=== PATIENT | female | born 1965 | race Caucasian/White ===

== ENCOUNTER 2016-04-12 09:51 | Emergency (ER) | payer OTHER ==
[2016-04-12 09:56] VITALS: BP 146/86; PULSE 74; TEMP 98.1; BMI 24.9
--- NOTE | 2016-04-12 11:45 | PDOC ---
History of Present Illness - General Chief Complaint: Pain Stated Complaint: EMPLOYEE, RT HAND INJURY Time Seen by Provider: 04/12/16 10:20 History Source: Patient Exam Limitations: No Limitations - History of Present Illness Initial Comments: 04/12/16 11:39 PAIN RIGHT RING FINGER X THIS AM; ? TRAUMA Occurred: denies: just prior to arrival Severity: denies: mild Pain Location: denies: none Method of Injury: No: unknown Modifying Factors: worse with: None Past History - Past Medical History Allergies/Adverse Reactions: Allergies Allergy/AdvReac Type Severity Reaction Status Date / Time No Known Allergies Allergy Verified 04/12/16 09:53 Home Medications: Ambulatory Orders NK [No Known Home Medication] 04/12/16 HTN: Yes - Immunization History Immunization Up to Date: Yes - Psycho/Social/Smoking Cessation Hx Anxiety: No Suicidal Ideation: No Smoking History: Former smoker Have you smoked in the past 12 months: No Number of Cigarettes Smoked Daily: 26 Information on smoking cessation initiated: No Hx Alcohol Use: No Drug/Substance Use Hx: No Substance Use Type: None Trauma Specific PMHX - Complaint Specific PMHX Arthritis: No Back Injury: Yes Neck Injury: No Hx Sacro Iliac Joint Dysfunction: No Review of Systems - Review of Systems Constitutional: No: Chills, Fever, Malaise HEENTM: No: Symptoms Reported Respiratory: No: Symptoms reported Cardiac (ROS): No: Symptoms Reported ABD/GI: No: Symptoms Reported Musculoskeletal: No: Joint Pain, Joint Swelling, Muscle Pain Integumentary: Yes: Erythema *Physical Exam - Vital Signs Last Vital Signs Temp Pulse Resp BP Pulse Ox 98.1 F 74 20 146/86 97 04/12/16 09:54 04/12/16 09:54 04/12/16 09:54 04/12/16 09:54 04/12/16 09:54 - Physical Exam General Appearance: Yes: Appropriately Dressed. No: Apparent Distress HEENT: positive: TMs Normal, Pharynx Normal Respiratory/Chest: positive: Lungs Clear, Other (TENDER PROXIMAL PHALANGE WITH MILD ECCHYMOSIS; ) Neurologic: positive: Other (CAP REFILL< 2 SEC.) ED Treatment Course - RADIOLOGY Radiology Studies Ordered: Category Date Time Status FINGER(S) RIGHT [RAD] Stat Radiology 04/12/16 10:27 Taken Medical Decision Making - Medical Decision Making 04/12/16 11:43 XRAYS= NEGATIVE; DANGER SIGNAL REVIEWED WITH PT *DC/Admit/Observation/Transfer Diagnosis at time of Disposition: Contusion of right ring finger Qualifiers: Encounter type: initial encounter Damage to nail status: without damage Qualified Code(s): S60.041A - Contusion of right ring finger without damage to nail, initial encounter - Discharge Dispostion Disposition: HOME Condition at time of disposition: Stable Admit: No - Patient Instructions Additional Instructions: REST AREA; RETURN FOR DISCOLORATION OR DELAY CAP REFILL - Post Discharge Activity Work/School Note: Back to Work
== END 2016-04-12 12:16 | disposition home or self-care (01) ==
LOC: JERFT 09:51
DX: I10 Essential (primary) hypertension (principal); X58.XXXA Exposure to other specified factors, initial encounter; Y93.9 Activity, unspecified; Y92.238 Other place in hospital as the place of occurrence of the external cause; Y99.0 Civilian activity done for income or pay
CPT/HCPCS: 73140-TC-RT; 99281-25

== ENCOUNTER 2017-02-14 10:17 | Emergency (ER) | payer OTHER ==
[2017-02-14 10:24] VITALS: BP 133/77; PULSE 71; TEMP 97.7; BMI 23.6
--- NOTE | 2017-02-14 11:44 | PDOC ---
History of Present Illness - General Chief Complaint: Bite Stated Complaint: BITE Time Seen by Provider: 02/14/17 11:25 History Source: Patient Exam Limitations: No Limitations - History of Present Illness Initial Comments: 02/14/17 11:55 Patient is a 51-year-old female with no past medical history who presents emergency department today complaining of a bite above her right clavicle. She states that she noticed the plate approximately 1 day ago. It got larger overnight. She states that is painful to touch. Denies fevers, chills, discharge from the site, itching, nausea, vomiting and diarrhea. Past History - Travel Traveled outside of the country in the last 30 days: No Close contact w/someone who was outside of country & ill: No - Past Medical History Allergies/Adverse Reactions: Allergies Allergy/AdvReac Type Severity Reaction Status Date / Time No Known Allergies Allergy Verified 02/14/17 10:21 Home Medications: Ambulatory Orders Clindamycin [Cleocin -] 300 mg PO TID #21 capsule 02/14/17 COPD: No HTN: Yes Hypercholesterolemia: Yes - Immunization History Immunization Up to Date: Yes - Suicide/Smoking/Psychosocial Hx Smoking History: Former smoker Have you smoked in the past 12 months: No Number of Cigarettes Smoked Daily: 26 Information on smoking cessation initiated: No Hx Alcohol Use: No Drug/Substance Use Hx: No Substance Use Type: None Review of Systems - Review of Systems Able to Perform ROS?: Yes Comments:: 02/14/17 12:56 CONSTITUTIONAL: Absent: fever, chills, diaphoresis, generalized weakness, malaise, loss of appetite HEENT: Absent: rhinorrhea, nasal congestion, throat pain, throat swelling, difficulty swallowing, mouth swelling, ear pain, eye pain, visual Changes CARDIOVASCULAR: Absent: chest pain, loss of consciousness, palpitations, irregular heart rate, peripheral edema RESPIRATORY: Absent: cough, shortness of breath, dyspnea with exertion, orthopnea, wheezing, stridor, hemoptysis GASTROINTESTINAL: Absent: abdominal pain, abdominal distension, nausea, vomiting, diarrhea, constipation, melena, hematochezia GENITOURINARY: Absent: dysuria, frequency, urgency, hesitancy, hematuria, flank pain, genital pain MUSCULOSKELETAL: Absent: myalgia, arthralgia, joint swelling SKIN: Present: bite to R chest. Absent: rash, itching, pallor HEMATOLOGIC/IMMUNOLOGIC: Absent: easy bleeding, easy bruising, lymphadenopathy, frequent infections ENDOCRINE: Absent: unexplained weight gain, unexplained weight loss, heat intolerance, cold intolerance NEUROLOGIC: Absent: headache, focal weakness or paresthesias, dizziness, unsteady gait, seizure, mental status changes, bladder or bowel incontinence PSYCHIATRIC: Absent: anxiety, depression, suicidal or homicidal ideation, hallucinations. Is the patient limited Mongolian proficient: No *Physical Exam - Vital Signs Last Vital Signs Temp Pulse Resp BP Pulse Ox 97.7 F 71 19 133/77 97 02/14/17 10:21 02/14/17 10:21 02/14/17 10:21 02/14/17 10:21 02/14/17 10:21 - Physical Exam Comments: 02/14/17 12:57 GENERAL: The patient is awake, alert, and fully oriented, in no acute distress. HEAD: Normal with no signs of trauma. EYES: Pupils equal, round and reactive to light, extraocular movements intact, sclera anicteric, conjunctiva clear. EXTREMITIES: Normal range of motion, no edema. NEUROLOGICAL: Normal speech, normal gait. PSYCH: Normal mood, normal affect. SKIN: [id number] round erythematous fluctuant mass above the R clavicle. Warm, Dry , normal turgor, no rashes noted. Procedures - Incision and Drainage I&D Site: Right: Other (lateral neck superior to clavicle) Betadine cleansed: Yes Anesthesia: 1% Lidocaine Volume(ml): 3 Blade Size: 11 Attempts: 1 Iodinated Packin/4 in Medical Decision Making - Medical Decision Making 02/14/17 12:22 Patient is a 51-year-old female who presents to the emergency department with an abscess of her right neck just superior to her clavicle. Procedure was explained to patient and informed consent was obtained. The area was sterilized under sterile procedure and the patient was anesthetized with 3% plain lidocaine. An 11 blade was used to make an incision. A large amount of pus was evacuated from the abscess. The abscess was thoroughly explored for loculations. Packing was placed and a dressing was then placed over the wound. Patient was started on antibiotics and told to follow-up in the emergency department in 1-2 days for wound evaluation and for packing removal. Patient tolerated procedure well. *DC/Admit/Observation/Transfer Diagnosis at time of Disposition: Abscess - Discharge Dispostion Disposition: HOME Condition at time of disposition: Good Admit: No - Prescriptions Prescriptions: Clindamycin [Cleocin -] 300 mg PO TID #21 capsule - Referrals Referrals: Soniya Cruz MD [Primary Care Provider] - - Patient Instructions Printed Discharge Instructions: DI for Skin Abscess Additional Instructions: You had an abscess drained today. This is a pocket of infection. Please return tomorrow to have the wound checked. You were also prescribed clindamycin 300 mg 3 times a day for one week. Please take this medication with food. You may take tylenol or motrin as needed for pain. Follow-up with your primary care doctor in 1 week. Return to the emergency department if you have worsening pain, fevers, chills, increased drainage from the site, or any changes in your symptoms. - Post Discharge Activity Forms/Work/School Notes: Back to Work
--- NOTE | 2017-02-16 07:36 | PDOC ---
Patient Follow-up (Call Back) - Post ED Follow - Up Condition at time of discharge: Good Disposition at time of original discharge: HOME Reason for Call Back: Abnwl. Microbiology (Wound culture shows staph coagulase negative. Patient was prescribed clindamycin upon discharge on the which is adequate coverage for preliminary. Will await final report .)
== END 2017-02-14 12:30 | disposition home or self-care (01) ==
LOC: JERFT 10:17
PROC: 0J960ZZ Drainage of Chest Subcutaneous Tissue and Fascia, Open Approach (ICD-10-PCS; principal; 2017-02-14)
DX: L02.213 Cutaneous abscess of chest wall (principal); I10 Essential (primary) hypertension; E78.00 Pure hypercholesterolemia, unspecified; Z87.891 Personal history of nicotine dependence
CPT/HCPCS: 87070; 87205; 99281-25

== ENCOUNTER 2017-05-14 10:27 | Emergency (ER) | payer OTHER ==
[2017-05-14 10:32] VITALS: BP 154/88; PULSE 69; TEMP 97.8; BMI 25.1
--- NOTE | 2017-05-14 11:07 | PDOC ---
History of Present Illness - General History Source: Patient Exam Limitations: No Limitations - History of Present Illness Initial Comments: 05/14/17 11:20 The patient is a 51-year-old female with a significant past medical history of hypertension and hypercholesterolemia, who presents to the emergency department with dizziness and lightheadedness that started this morning. She reports she was standing while at work and felt dizzy for a few seconds. She admits she felt like the room was spinning slightly. She also states her face was becoming red. Upon interview she denies any symptoms while lying down. She states she ate breakfast this morning. The patient denies chest pain, body aches, weakness, shortness of breath, numbness/tingling, ringing in the ears, and headache. The patient denies fever, chills, nausea, vomit, diarrhea and constipation. The patient denies dysuria, frequency, urgency and hematuria. Allergies: NKDA Past Surgical History: None reported <Juliana Green - Last Filed: 05/14/17 11:21> <Misti Hurd - Last Filed: 05/15/17 13:07> - General Chief Complaint: Lightheaded Stated Complaint: EMPLOYEE, DIZZINESS Time Seen by Provider: 05/14/17 10:44 Past History <Juliana Green - Last Filed: 05/14/17 11:21> - Past Medical History COPD: No DVT: No HTN: Yes Hypercholesterolemia: Yes - Immunization History Immunization Up to Date: Yes - Suicide/Smoking/Psychosocial Hx Smoking History: Never smoked Have you smoked in the past 12 months: No Number of Cigarettes Smoked Daily: 0 Information on smoking cessation initiated: No Hx Alcohol Use: No Drug/Substance Use Hx: No Substance Use Type: None <Misti Hurd - Last Filed: 05/15/17 13:07> - Past Medical History Allergies/Adverse Reactions: Allergies Allergy/AdvReac Type Severity Reaction Status Date / Time No Known Allergies Allergy Verified 05/14/17 10:29 Home Medications: Ambulatory Orders Oseltamivir Phosphate [Tamiflu -] 75 mg PO BID #10 capsule 05/15/17 Review of Systems - Review of Systems Able to Perform ROS?: Yes Comments:: 05/14/17 11:20 GENERAL/CONSTITUTIONAL: No: fever, chills, weakness, loss of appetite. HEAD, EYES, EARS, NOSE AND THROAT: No: change in vision, ear pain, discharge, sore throat, throat swelling. CARDIOVASCULAR: No: chest pain, palpitations, syncope RESPIRATORY: No: cough, shortness of breath, wheezing, hemoptysis, stridor. GASTROINTESTINAL: No: nausea, vomiting, abdominal cramping, diarrhea, rectal bleeding, constipation. GENITOURINARY: No: dysuria, hematuria, frequency, urgency, flank pain. MUSCULOSKELETAL: No: back pain, neck pain, joint pain, muscle swelling or pain SKIN: No: lesions, pallor, rash or easy bruising. NEUROLOGIC: (+) Dizziness. (+) Lightheadedness. No: headache, vertigo, paresthesias, weakness ENDOCRINE: No: unexplained weight gain or loss HEMATOLOGIC/LYMPHATIC: No: anemia, easy bleeding, swelling nodes <Green,Juliana - Last Filed: 05/14/17 11:21> *Physical Exam - Vital Signs Last Vital Signs Temp Pulse Resp BP Pulse Ox 97.8 F 69 18 154/88 100 05/14/17 10:30 05/14/17 10:30 05/14/17 10:30 05/14/17 10:30 05/14/17 10:30 - Physical Exam Comments: 05/14/17 11:21 GENERAL: The patient is in no acute distress. HEAD: Normal with no signs of trauma. EYES: PERRLA, EOMI, sclera anicteric, conjunctiva clear. ENT: Ears normal, nares patent, oropharynx clear without exudates. Moist mucous membranes. NECK: Normal range of motion, supple without lymphadenopathy, JVD, or masses. LUNGS: Breath sounds equal, clear to auscultation bilaterally. No wheezes, and no crackles. HEART:Regular rate and rhythm, normal S1 and S2 without murmur, rub or gallop. ABDOMEN: Soft, nontender, normoactive bowel sounds. No guarding, no rebound. EXTREMITIES: Normal range of motion, no edema. No clubbing or cyanosis. No erythema, or tenderness. NEUROLOGICAL: Cranial nerves II through XII grossly intact. Normal speech. Strength is good. Normal finger to nose. No sensory deficits. Heel meza test normal. (+) Some difficulty walking heel to toe. MUSCULOSKELETAL: Back nontender to palpation, no CVA tenderness SKIN: Warm, Dry, normal turgor, no rashes or lesions noted. <Green,Juliana - Last Filed: 05/14/17 11:21> - Vital Signs Last Vital Signs Temp Pulse Resp BP Pulse Ox 97.8 F 69 18 154/88 100 05/14/17 10:30 05/14/17 10:30 05/14/17 10:30 05/14/17 10:30 05/14/17 10:30 <Misti Hurd - Last Filed: 05/15/17 13:07> Medical Decision Making - Medical Decision Making 05/14/17 11:13 Ms Bernard is a 51 yo F who presents to the ER due to dizziness and lightheadedness Pt states she awoke in her usual state of health this morning She had breakfast, went to work She noted a momentary episode of vertigo/lightheadedness NOT accompanied by headache or chest pain No weakness No numbness No slurring of her speech Pt states her symptoms have passed On examination: RRR CTA B/L No abd tenderness CN intact Motor intract all extremites Sensation in tact Finger to nose intact no dysmetria No dysdiadokinesis When assisted to standing and asked to walk heel to toes, this patient required assistance and became unsteady Will do: Labs EKG Orthostatic vital signs Head CT Meclizine RE assess 05/14/17 11:43 This patient is refusing labs 05/14/17 13:24 Pt does not want to stay in the ER for her results Will discharge to home Pt is walking through out the ER, requesting that I discharge her because her sister is coming to pick her up She states she will call back for her results I have explained that she is leaving the ER AGAINST MY MEDICAL ADVICE Clinical Impression: dizziness, initial presentation 05/14/17 13:28 EKG: Sinus rhythm, rate of 65 bpm, normal axis, no ST elevations or depressions , ID prolongation 05/15/17 13:01 Note: The patient insists on leaving the emergency dept and is signing out against medical advice. The patient understands the risks and complications that may result from the refusal of medical care and admission which includes and permanent disability. The patient has the mental capacity of understanding the risks of refusing care and is capable of making an informed decision. The patient was instructed to return to the emergency department should she change her mind regarding medical care or should her condition worsen. The patient signed the Against Medical Advice form. 05/15/17 13:03 Call placed to Ms Bernard to give her the results of her CT I have asked he to see her PMD within 1 days Have her PMD review the CT because it is possible that she has a SDH She will need a follow up CT or MRI Pt tells me that she has the flu Will send Tamiflu to her pharmacy 05/15/17 13:06 <Misti Hurd - Last Filed: 05/15/17 13:07> *DC/Admit/Observation/Transfer - Attestations Scribe Attestion: 05/14/17 11:21 Documentation prepared by Juliana Green, acting as medical accounting clerk for Misti Hurd MD/DO. <Juliana Green - Last Filed: 05/14/17 11:21> - Discharge Dispostion Admit: No <Misti Hurd - Last Filed: 05/15/17 13:07> Diagnosis at time of Disposition: Dizziness - Discharge Dispostion Disposition: AGAINST MEDICAL ADVICE Condition at time of disposition: Stable - Patient Instructions Printed Discharge Instructions: DI for Dizziness-Nonvertigo Additional Instructions: Thanks for coming in to the ER Be sure to follow up with your primary care physician within 1 week Return to the ER for any other concerns or complaints
[2017-05-14] MEDS ORDERED: MECLIZINE HCL 25 MG TABLET (FP) PO ONE (11:11)
[2017-05-14] MEDS ORDERED: MECLIZINE HCL 12.5 MG TABLET ONE (11:35)
--- NOTE | 2017-05-14 14:07 | EKG ---
Test Reason : Blood Pressure : / mmHG Vent. Rate : 065 BPM Atrial Rate : 065 BPM P-R Int : 224 ms QRS Dur : 092 ms QT Int : 402 ms P-R-T Axes : 057 027 047 degrees QTc Int : 418 ms SINUS RHYTHM WITH 1ST DEGREE A-V BLOCK OTHERWISE NORMAL ECG WHEN COMPARED WITH ECG OF 09-OCT-2002 08:02, NO SIGNIFICANT CHANGE WAS FOUND Confirmed by MD Casimiro, Willi ([id number]) on 05/14/2017 2:07:06 PM Referred By: Confirmed By:Willi Kirkpatrick MD
== END 2017-05-14 13:37 | disposition left against medical advice (07) ==
LOC: JER 10:27
DX: R42 Dizziness and giddiness (principal); I10 Essential (primary) hypertension; E78.00 Pure hypercholesterolemia, unspecified
CPT/HCPCS: 70450-TC; 93005; 93010; 99282-25

== ENCOUNTER 2017-06-07 10:13 | Emergency (ER) | payer OTHER ==
[2017-06-07 10:28] VITALS: BP 142/87; PULSE 71; TEMP 98.6; BMI 24.9
--- NOTE | 2017-06-07 11:30 | PDOC ---
History of Present Illness - General Chief Complaint: Injury Stated Complaint: BRUISED RT FINGER Time Seen by Provider: 06/07/17 10:46 History Source: Patient Exam Limitations: No Limitations - History of Present Illness Initial Comments: 06/07/17 15:30 Patient is a 51-year-old female, denies any medical history employed [employer] here for evaluation of bruising to the volar surface of the right third finger. 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 Occurred: reports: other (unknown. ) Severity: reports: moderate Past History - Past Medical History Allergies/Adverse Reactions: Allergies Allergy/AdvReac Type Severity Reaction Status Date / Time No Known Allergies Allergy Verified 06/07/17 10:26 Home Medications: Ambulatory Orders NK [No Known Home Medication] 06/07/17 COPD: No DVT: No HTN: Yes Hypercholesterolemia: Yes - Immunization History Immunization Up to Date: Yes - Suicide/Smoking/Psychosocial Hx Smoking History: Never smoked Have you smoked in the past 12 months: No Number of Cigarettes Smoked Daily: 0 Information on smoking cessation initiated: No Hx Alcohol Use: No Drug/Substance Use Hx: No Substance Use Type: None Review of Systems - Review of Systems Constitutional: No: Symptoms Reported HEENTM: No: Symptoms Reported Respiratory: No: Symptoms reported Cardiac (ROS): No: Symptoms Reported Musculoskeletal: No: Joint Pain, Joint Swelling Integumentary: Yes: Bruising, Other (edema to generalized right third finger.) Neurological: No: Symptoms reported, Paresthesia, Tingling, Tremors Hematologic/Lymphatic: No: Symptoms Reported All Other Systems: Reviewed and Negative *Physical Exam - Vital Signs Last Vital Signs Temp Pulse Resp BP Pulse Ox 98.6 F 71 15 142/87 97 06/07/17 10:26 06/07/17 10:26 06/07/17 10:26 06/07/17 10:26 06/07/17 10:26 - Physical Exam General Appearance: Yes: Appropriately Dressed. No: Apparent Distress Extremity: positive: Tender, Swelling Integumentary: positive: Swelling, Bruising (to the volar surface of the right third finger.). negative: Erythema ED Treatment Course - RADIOLOGY Radiology Studies Ordered: Category Date Time Status FINGER(S) RIGHT [RAD] Stat Radiology 06/07/17 10:57 Completed Medical Decision Making - Medical Decision Making 06/07/17 15:32 A/P: Patient with bruising to the right third finger denies trauma good range of motion to finger. Patient sent to x-ray there is no acute fracture dislocation noted. Splint placed on patient to follow-up with orthopedics as needed, Motrin for pain. *DC/Admit/Observation/Transfer Diagnosis at time of Disposition: Superficial bruising of finger Qualifiers: Encounter type: initial encounter Finger: middle finger Damage to nail status: without damage Laterality: right Qualified Code(s): S60.031A - Contusion of right middle finger without damage to nail, initial encounter - Discharge Dispostion Disposition: HOME Condition at time of disposition: Stable Admit: No - Referrals Referrals: Soniya Cruz MD [Primary Care Provider] - Raoul Bales MD [Staff Physician] - - Patient Instructions Additional Instructions: Recommend follow-up with Dr. Bales. Please leave splint on until follow-up. - Post Discharge Activity Forms/Work/School Notes: Back to Work
== END 2017-06-07 11:35 | disposition home or self-care (01) ==
LOC: JERFT 10:13
PROC: 2W3JX1Z Immobilization of Right Finger using Splint (ICD-10-PCS; principal; 2017-06-07)
DX: S60.031A Contusion of right middle finger without damage to nail, initial encounter (principal); X58.XXXA Exposure to other specified factors, initial encounter; Y93.9 Activity, unspecified; Y92.238 Other place in hospital as the place of occurrence of the external cause; Y99.0 Civilian activity done for income or pay
CPT/HCPCS: 73140-TC-RT-FY; 99281-25

== ENCOUNTER → 2017-07-22 | Day surgery (SDC) | payer OTHER ==
--- NOTE | 2017-07-23 14:50 | PATH ---
Cytology Non-Gynecological Report Patient Name: JUANCARLOS STRICKLAND [facility]. Rec. #: [id number] /Age/Gender: 1965 (Age: 52) / F Account: [id number] Location: [facility] Taken: 07/22/2017 Received: 07/22/2017 Reported: 07/23/2017 Physicians: Laure Desai M.D. Specimen(s) Received LEFT THYROID FNA Clinical History Left thyroid nodule, 2.36 x 1.78 x1.68 cm Final Diagnosis THYROID, LEFT, FINE NEEDLE ASPIRATION: SATISFACTORY FOR EVALUATION. BETHESDA CLASS II: BENIGN. CYTOLOGIC FINDINGS ARE CONSISTENT WITH A BENIGN FOLLICULAR NODULE. SMALL FOLLICULAR CELLS AND COLLOID PRESENT. Electronically Signed Jackie Qureshi M.D. Gross Description Received are eight direct smears, four of which are air-dried and Diff-Quik stained, and four of which are alcohol fixed and Pap stained. Also received is 20 ml of bloody formalin from which one cellblock is prepared. Received is a 1.5 ml molecular ThyroSeq tube.
== END | disposition home or self-care (01) ==
LOC: JRADIR 12:33
PROVIDERS: ATTEND Surgery
PROC: 0G9G3ZX Drainage of Left Thyroid Gland Lobe, Percutaneous Approach, Diagnostic (ICD-10-PCS; principal; 2017-07-22)
DX: E04.1 Nontoxic single thyroid nodule (principal)
CPT/HCPCS: 76942; 88173; 88305-TC

== ENCOUNTER 2018-06-03 13:03 | Emergency (ER) | payer OTHER ==
[2018-06-03 13:08] VITALS: BP 146/88; PULSE 88; TEMP 98.4; BMI 25.8
--- NOTE | 2018-06-03 13:43 | PDOC ---
History of Present Illness - General Chief Complaint: Toothache Stated Complaint: TOOTHACHE Time Seen by Provider: 06/03/18 13:19 - History of Present Illness Initial Comments: 06/03/18 13:39 52-year-old female without comorbidities presents for evaluation of toothache 3 days without systemic symptoms. Past History - Past Medical History Allergies/Adverse Reactions: Allergies Allergy/AdvReac Type Severity Reaction Status Date / Time No Known Allergies Allergy Verified 06/03/18 13:06 Home Medications: Ambulatory Orders Acetaminophen [Tylenol] 650 mg PO Q8H PRN 06/03/18 Amoxicillin - [Amoxicillin 875mg Tablet -] 875 mg PO BID #14 tab 06/03/18 Ibuprofen [Motrin -] 600 mg PO TID #30 tablet 06/03/18 COPD: No DVT: No HTN: Yes Hypercholesterolemia: Yes - Immunization History Immunization Up to Date: Yes - Suicide/Smoking/Psychosocial Hx Smoking History: Unknown if ever smoked Have you smoked in the past 12 months: No Number of Cigarettes Smoked Daily: 0 Hx Alcohol Use: No Drug/Substance Use Hx: No Substance Use Type: None Review of Systems - Review of Systems HEENTM: Yes: Dental Problems *Physical Exam - Vital Signs Last Vital Signs Temp Pulse Resp BP Pulse Ox 98.4 F 88 18 146/88 99 06/03/18 13:06 06/03/18 13:06 06/03/18 13:06 06/03/18 13:06 06/03/18 13:06 - Physical Exam Comments: 06/03/18 13:41 HEAD: NC/AT EYES: Conjuntiva clear MOUTH: There is diffuse dental decay without indication of abscess. Area of complaint is right lower incisors. There is a fullness about the gingiva without fluctuance erythema or tenderness. Significant to decay and missing teeth. NOSE: No d/c THROAT: Moist mucous membrances, oral pharanx clear, uvula midline MS: Full ROM in all joints without edema NEUROLOGIC: No gross sensory or motor deficits, NVID SKIN: Normal color and temperature no lesions or rashes Moderate Sedation - Procedure Monitoring Vital Signs: Procedure Monitoring Vital Signs Temperature 98.4 F 06/03/18 13:06 Pulse Rate 88 06/03/18 13:06 Respiratory Rate 18 06/03/18 13:06 Blood Pressure 146/88 06/03/18 13:06 O2 Sat by Pulse Oximetry (%) 99 03/05/19 13:06 *DC/Admit/Observation/Transfer Diagnosis at time of Disposition: Toothache - Discharge Dispostion Disposition: HOME Condition at time of disposition: Stable Decision to Admit order: No - Prescriptions Prescriptions: Amoxicillin - [Amoxicillin 875mg Tablet -] 875 mg PO BID #14 tab Ibuprofen [Motrin -] 600 mg PO TID #30 tablet - Referrals Referrals: Soniya Cruz MD [Primary Care Provider] - [facility] [Outside] - Patient Instructions Printed Discharge Instructions: DI for Dental Pain, DI for Tooth Decay Additional Instructions: Please take the antibiotics as directed. Return to the emergency room for worsening symptoms. Follow-up with urgent care dental either today or tomorrow for further evaluation and treatment options. Tylenol and Motrin as directed for pain. Do not take [id number] Motrin is given U prescription a pharmacy for prescription strength Motrin which should be taken one tablet 3 times a day with meals. Discontinue it if the medication bothers her stomach. - Post Discharge Activity
== END 2018-06-03 13:49 | disposition home or self-care (01) ==
LOC: JERFT 13:03
DX: K08.89 Other specified disorders of teeth and supporting structures (principal); I10 Essential (primary) hypertension; E78.00 Pure hypercholesterolemia, unspecified
CPT/HCPCS: 99281-25

== ENCOUNTER 2019-01-08 06:38 | Emergency (ER) | payer OTHER ==
[2019-01-08 07:19] VITALS: BP 137/86; PULSE 77; TEMP 98.5; BMI 22.8
[2019-01-08] MEDS ORDERED: IBUPROFEN 400 MG TABLET (FP) PO ONE ×2 (07:46→08:02)
--- NOTE | 2019-01-08 07:52 | PDOC ---
History of Present Illness - General Chief Complaint: Toothache Stated Complaint: TOOTHACHE,EARACHE Time Seen by Provider: 01/08/19 07:33 History Source: Patient Exam Limitations: Clinical Condition - History of Present Illness Initial Comments: 01/08/19 07:54 Patient with no significant past medical history presented with complaint of 2 days history of right-sided lower gum pain and swelling with broken right back molars. Patient has similar episode a few months ago and was supposed to be seen by dentist but could not see dentist due to insurance issues. Denies fever , chills, nausea vomiting. Denies any other symptoms Is this a multiple visit Asthma Patient?: No Timing/Duration: other (2 days) Past History - Past Medical History Allergies/Adverse Reactions: Allergies Allergy/AdvReac Type Severity Reaction Status Date / Time No Known Allergies Allergy Verified 06/03/18 13:06 Home Medications: Ambulatory Orders Acetaminophen [Tylenol] 650 mg PO Q8H PRN 06/03/18 Amoxicillin - [Amoxicillin 875mg Tablet -] 875 mg PO BID #14 tab 06/03/18 Amoxicillin 875 mg PO BID 7 Days #14 tablet 01/08/19 Ibuprofen [Motrin -] 600 mg PO Q8H PRN #20 tablet 01/08/19 COPD: No DVT: No HTN: Yes Hypercholesterolemia: Yes - Immunization History Immunization Up to Date: Yes - Psycho Social/Smoking Cessation Hx Smoking History: Never smoked Have you smoked in the past 12 months: No Number of Cigarettes Smoked Daily: 0 Information on smoking cessation initiated: No Hx Alcohol Use: No Drug/Substance Use Hx: No Substance Use Type: None Review of Systems - Review of Systems Able to Perform ROS?: Yes Is the patient limited Nepali proficient: No Constitutional: No: Malaise, Weakness HEENTM: Yes: Symptoms Reported, See HPI, Dental Problems. No: Eye Pain, Blurred Vision, Tearing, Recent change in vision, Double Vision, Cataracts, Ear Pain, Ocular Prothesis, Ear Discharge, Nose Pain, Nose Congestion, Tinnitus, Nose Bleeding, Hearing Loss, Throat Pain, Throat Swelling, Mouth Pain, Difficulty Swallowing, Mouth Swelling, Other Respiratory: No: Symptoms reported, See HPI, Cough, Orthopnea, Shortness of Breath, SOB with Exertion, SOB at Rest, Stridor, Wheezing, Productive cough, Hemoptysis, Other Cardiac (ROS): No: Symptoms Reported, See HPI, Chest Pain, Edema, Irregular Heart Rate, Lightheadedness, Palpitations, Syncope, Chest Tightness, Other ABD/GI: No: Nausea, Vomiting Musculoskeletal: No: Symptoms Reported Integumentary: No: Symptoms Reported All Other Systems: Reviewed and Negative *Physical Exam - Vital Signs Last Vital Signs Temp Pulse Resp BP Pulse Ox 98.5 F 77 17 137/86 96 01/08/19 07:16 01/08/19 07:16 01/08/19 07:16 01/08/19 07:16 01/08/19 07:16 - Physical Exam Comments: 01/08/19 07:58 GENERAL: Well developed, well nourished. Awake and alert. No acute distress. HEENT: multiple teeth decays with lower premolars and molars with mulitple chipped teeth with moderate peridontal swelling. Normal ear exam.Normocephalic, atraumatic. PERRLA, EOMI. No conjunctival pallor. Sclera are non-icteric. Moist mucous membranes. NECK: Supple. Full ROM. CARDIOVASCULAR: Regular rate and rhythm. No murmurs, rubs, or gallops. PULMONARY: No evidence of respiratory distress. Lungs clear to auscultation bilaterally. No wheezing, rales or rhonchi. MUSCULOSKELETAL Normal range of motion at all joints. SKIN: Warm and dry. Normal capillary refill. Mild swelling to right side of face from peridontal swelling. NEUROLOGICAL: Alert, awake, appropriate. Gait is normal without ataxia. PSYCHIATRIC: Cooperative. Good eye contact. Appropriate mood General Appearance: Yes: Nourished, Appropriately Dressed, Apparent Distress, Mild Distress Medical Decision Making - Medical Decision Making 01/08/19 07:55 Patient with no significant past medical history presented with complaint of 2 days history of right-sided lower gum pain and swelling with broken right back molars. Patient has similar episode a few months ago and was supposed to be seen by dentist but could not see dentist due to insurance issues. Denies fever , chills, nausea vomiting. Denies any other symptoms Exam significant for multiple teeth decays with lower premolars and molars with mulitple chipped teeth with moderate peridontal swelling. Normal ear exam. Patient stable for discharge on Amox Abx for periodontitis with motrin prn for pain. Patient referred to dental clinic in [place] which does sliding scale fee for service for uninsured. motrin 800mg PO ordered for pain prior to discharge Discharge - Discharge Information Problems reviewed: Yes Clinical Impression/Diagnosis: Toothache, Periodontitis Condition: Stable Disposition: HOME - Admission No - Additional Discharge Information Prescriptions: Amoxicillin 875 mg PO BID 7 Days #14 tablet Ibuprofen [Motrin -] 600 mg PO Q8H PRN #20 tablet PRN Reason: pain - Follow up/Referral Referrals: [facility], Dental [Other] - Patient Discharge Instructions Patient Printed Discharge Instructions: DI for Tooth Decay, DI for Dental Pain Additional Instructions: Take medications as prescribed. Gargle with salt water. Follow-up with dentist as discussed as soon as possible - Post Discharge Activity
== END 2019-01-08 08:05 | disposition home or self-care (01) ==
LOC: JER 06:38
DX: K05.30 Chronic periodontitis, unspecified (principal); K08.89 Other specified disorders of teeth and supporting structures; I10 Essential (primary) hypertension; E78.00 Pure hypercholesterolemia, unspecified
CPT/HCPCS: 99281-25

== ENCOUNTER 2019-01-30 08:45 | Emergency (ER) | payer OTHER ==
[2019-01-30 08:53] VITALS: BP 151/91; PULSE 89; TEMP 98.4; BMI 22.8
--- NOTE | 2019-01-30 09:51 | PDOC ---
History of Present Illness - General Chief Complaint: Toothache Stated Complaint: SWOLLEN JAW Time Seen by Provider: 01/30/19 09:40 History Source: Patient Exam Limitations: No Limitations Past History - Past Medical History Allergies/Adverse Reactions: Allergies Allergy/AdvReac Type Severity Reaction Status Date / Time No Known Allergies Allergy Verified 06/03/18 13:06 Home Medications: Ambulatory Orders Acetaminophen [Tylenol] 650 mg PO Q8H PRN 06/03/18 Amoxicillin - [Amoxicillin 875mg Tablet -] 875 mg PO BID #14 tab 06/03/18 Amoxicillin 875 mg PO BID 7 Days #14 tablet 01/08/19 Ibuprofen [Motrin -] 600 mg PO Q8H PRN #20 tablet 01/08/19 Amoxicillin 875 mg PO BID #14 tablet 01/30/19 COPD: No DVT: No HTN: Yes Hypercholesterolemia: Yes - Immunization History Immunization Up to Date: Yes - Psycho Social/Smoking Cessation Hx Smoking History: Unknown if ever smoked Have you smoked in the past 12 months: No Number of Cigarettes Smoked Daily: 0 Hx Alcohol Use: No Drug/Substance Use Hx: No Substance Use Type: None *Physical Exam - Vital Signs Last Vital Signs Temp Pulse Resp BP Pulse Ox 98.4 F 89 18 151/91 96 01/30/19 08:51 01/30/19 08:51 01/30/19 08:51 01/30/19 08:51 01/30/19 08:51 - Physical Exam General Appearance: No: Apparent Distress HEENT: positive: Pharynx Normal, Other (missing several teeth, mild right upper gum swelling, no evidence of abscess, no drainage, no facial swelling) Integumentary: positive: Normal Color Neurologic: positive: Alert, Normal Mood/Affect Medical Decision Making - Medical Decision Making 53 y/o F with no sig pmh presents with R upper toothache from last night. Patient was seen for something similar last month, but that was for chipped tooth along right lower jaw. States that time, symptoms improved with antibiotics and was hoping to get another rx for antibiotics. Patient has f/u with dentist on 02/21. Patient has had multiple prior dental extractions. Denies smoking, drug use. No evidence of dental abscess Patient with poor dentition Rx for amoxicillin sent; explained to take with food 01/30/19 09:48 Discharge - Discharge Information Problems reviewed: Yes Clinical Impression/Diagnosis: Toothache Condition: Stable Disposition: HOME - Admission No - Additional Discharge Information Prescriptions: Amoxicillin 875 mg PO BID #14 tablet Prescription Drug Monitoring Program (I-STOP) results: I-STOP not reviewed - Follow up/Referral Referrals: Soniya Cruz MD [Primary Care Provider] - - Patient Discharge Instructions Patient Printed Discharge Instructions: DI for Dental Pain Additional Instructions: Thank you for choosing [facility]. It was a pleasure taking care of you. You may take Motrin 600 mg every 6 hours by mouth as needed for mild to moderate pain. Take Motrin with food. Take the antibiotics as prescribed with food Continue follow-up with your dentist Return to the Emergency Department if your symptoms worsen or persist, you have fever or other concerning symptoms. - Post Discharge Activity
== END 2019-01-30 10:00 | disposition home or self-care (01) ==
LOC: JERFT 08:45
DX: K08.89 Other specified disorders of teeth and supporting structures (principal); I10 Essential (primary) hypertension; E78.00 Pure hypercholesterolemia, unspecified; R22.0 Localized swelling, mass and lump, head
CPT/HCPCS: 99281-25

== ENCOUNTER 2019-02-02 06:31 | Emergency (ER) | payer OTHER ==
[2019-02-02 06:50] VITALS: TEMP 98; BMI 22.6
--- NOTE | 2019-02-02 07:31 | PDOC ---
History of Present Illness - General Chief Complaint: Edema Stated Complaint: TEETH SWELLING Time Seen by Provider: 02/02/19 07:30 History Source: Patient Exam Limitations: No Limitations - History of Present Illness Initial Comments: 02/02/19 07:31 53-year-old female history of htn, hl, presents with a complaint of lip swelling. Patient has been having episodes of mouth swelling for the last several days she was last here 3 days ago with significant swelling on the right cheek/face, she was started on amoxicillin and ibuprofen with significant improvement of her symptoms however she still had residual swelling on the anterior upper lip that has not gone away. The patient does admit that it is significantly better she denies any difficulty swallowing, difficulty breathing , fevers, chills. The patient has poor dentition and has been resisting going to the dentist however she did make an appointment to go on 02/09. Patient denies smoking or drug use GENERAL: The patient is awake, alert, and fully oriented, Nontoxic - in no acute distress. HEAD: Normocephalic, atraumatic. EYES: extraocular movements intact, sclera anicteric, conjunctiva clear. No periobital edema ENT: Normal voice, Moist mucous membranes. Poor dentition, with fractured amrit on amrit 12, severely tooth decay on ~tooth 15, tooh 43, no bogginess, erythhema , induration, mild edema of upper lip lightly off midline with vey slighy erythema, non indurated, airway patent NECK: Normal range of motion, supple suspect swelling secondary to carries no signs of abscess no airway comprmise Is this a multiple visit Asthma Patient?: No Past History - Past Medical History Allergies/Adverse Reactions: Allergies Allergy/AdvReac Type Severity Reaction Status Date / Time No Known Allergies Allergy Verified 02/02/19 06:39 Home Medications: Ambulatory Orders Acetaminophen [Tylenol] 650 mg PO Q8H PRN 06/03/18 Amoxicillin - [Amoxicillin 875mg Tablet -] 875 mg PO BID #14 tab 06/03/18 Amoxicillin 875 mg PO BID 7 Days #14 tablet 01/08/19 Ibuprofen [Motrin -] 600 mg PO Q8H PRN #20 tablet 01/08/19 Amoxicillin 875 mg PO BID #14 tablet 01/30/19 COPD: No DVT: No HTN: Yes Hypercholesterolemia: Yes - Immunization History Immunization Up to Date: Yes - Psycho Social/Smoking Cessation Hx Smoking History: Never smoked Have you smoked in the past 12 months: No Number of Cigarettes Smoked Daily: 0 Hx Alcohol Use: No Drug/Substance Use Hx: No Substance Use Type: None *Physical Exam - Vital Signs Last Vital Signs Temp Pulse Resp BP Pulse Ox 98.0 F 100 H 158 H 144/91 96 02/02/19 06:40 02/02/19 06:40 02/02/19 06:40 02/02/19 06:40 02/02/19 06:40 Discharge - Discharge Information Problems reviewed: Yes Clinical Impression/Diagnosis: Facial swelling, Toothache Condition: Stable Disposition: HOME - Admission No - Follow up/Referral Referrals: Soniya Cruz MD [Primary Care Provider] - - Patient Discharge Instructions Patient Printed Discharge Instructions: DI for Tooth Decay Additional Instructions: Return to the emergency department immediately with ANY new, persistent or worsening symptoms including any worsening swelling, difficulty breathing, difficulty swallowing, fevers or any other concerns. Continue taking your antibiotics as prescribed you must follow-up with your dentist as soon as possible. Print Language: WALLISIAN - Post Discharge Activity Work/Back to School Note: Back to Work
[2019-02-02 07:39] VITALS: BP 141/92; PULSE 92
== END 2019-02-02 07:55 | disposition home or self-care (01) ==
LOC: JER 06:31
DX: K08.89 Other specified disorders of teeth and supporting structures (principal); K02.9 Dental caries, unspecified; I10 Essential (primary) hypertension; E78.5 Hyperlipidemia, unspecified
CPT/HCPCS: 99281-25

== ENCOUNTER 2019-04-07 08:14 | Emergency (ER) | payer OTHER ==
[2019-04-07 08:28] VITALS: BP 143/75; PULSE 76; TEMP 98; BMI 22.4
[2019-04-07] MEDS ORDERED: KETOROLAC TROMETHAMINE 60 MG/2 ML VIAL IM ONE (08:47)
[2019-04-07] MEDS ORDERED: CYCLOBENZAPRINE HCL 10 MG TABLET (FP) PO ONE (08:47)
[2019-04-07] MEDS ORDERED: LIDOCAINE 5% TOPICAL PATCH TP ONE (08:48)
--- NOTE | 2019-04-07 08:53 | PDOC ---
History of Present Illness - General Chief Complaint: Back Pain Stated Complaint: PAIN Time Seen by Provider: 04/07/19 08:28 History Source: Patient Exam Limitations: No Limitations Past History - Travel Traveled outside of the country in the last 30 days: No Close contact w/someone who was outside of country & ill: No - Past Medical History Allergies/Adverse Reactions: Allergies Allergy/AdvReac Type Severity Reaction Status Date / Time No Known Allergies Allergy Verified 04/07/19 08:24 Home Medications: Ambulatory Orders Acetaminophen [Tylenol] 650 mg PO Q8H PRN 06/03/18 Amoxicillin - [Amoxicillin 875mg Tablet -] 875 mg PO BID #14 tab 06/03/18 Amoxicillin 875 mg PO BID 7 Days #14 tablet 01/08/19 Ibuprofen [Motrin -] 600 mg PO Q8H PRN #20 tablet 01/08/19 Amoxicillin 875 mg PO BID #14 tablet 01/30/19 COPD: No DVT: No HTN: Yes Hypercholesterolemia: Yes - Immunization History Immunization Up to Date: Yes - Psycho Social/Smoking Cessation Hx Smoking History: Smoker current status UNK Have you smoked in the past 12 months: No Number of Cigarettes Smoked Daily: 0 Information on smoking cessation initiated: No Hx Alcohol Use: No Drug/Substance Use Hx: No Substance Use Type: None Review of Systems - Review of Systems Able to Perform ROS?: Yes Comments:: 04/07/19 08:51 CONSTITUTIONAL: Absent: fever, chills, diaphoresis, generalized weakness, malaise, loss of appetite GASTROINTESTINAL: Absent: abdominal pain, abdominal distension, nausea, vomiting, diarrhea, constipation, melena, hematochezia GENITOURINARY: Absent: dysuria, frequency, urgency, hesitancy, hematuria, flank pain, genital pain MUSCULOSKELETAL: Present: low back pain Absent: arthralgia, joint swelling SKIN: Absent: rash, itching, pallor NEUROLOGIC: Absent: headache, focal weakness or paresthesias, dizziness, unsteady gait, seizure, mental status changes, bladder or bowel incontinence PSYCHIATRIC: Absent: anxiety, depression, suicidal or homicidal ideation, hallucinations. Is the patient limited Micronesian proficient: No *Physical Exam - Vital Signs Last Vital Signs Temp Pulse Resp BP Pulse Ox 98 F 76 20 143/75 100 04/07/19 08:24 04/07/19 08:24 04/07/19 08:24 04/07/19 08:24 04/07/19 08:24 - Physical Exam 04/07/19 08:51 GENERAL: Well developed, well nourished. Awake and alert. No acute distress. NECK: Supple. Full ROM. MUSCULOSKELETAL TTP of the L paraspinous muscles, L3-L5, with palpable knot. (+) midline tenderness, (-) straight leg raise testingNormal range of motion at all joints. No bony deformities. No CVA tenderness. EXTREMITIES: No cyanosis. No clubbing. No edema. No calf tenderness. SKIN: Warm and dry. Normal capillary refill. No rashes. No jaundice. NEUROLOGICAL: Alert, awake, appropriate. Cranial nerves 2-12 intact. No deficits to light touch and temperature in face, upper extremities and lower extremities. No motor deficits in the in face, upper extremities and lower extremities. Normoreflexic in the upper and lower extremities. Normal speech. Toes are down- going bilaterally. Gait is normal without ataxia. PSYCHIATRIC: Cooperative. Good eye contact. Appropriate mood and affect. Medical Decision Making - Medical Decision Making 04/07/19 08:53 Patient is a 53-year-old female past medical history of lipidemia, who presents to the ER today for low back pain. She works for [employer] in [employer]. 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 She states the pain is mostly on her left side and goes to her buttock. She states that it hurts to walk. Denies falling or trauma. Denies fevers, chills, urinary symptoms, nausea, vomiting, saddle anesthesia and bladder bowel incontinence. A/P: Low back pain -Pt with TTP of the L paraspinous muscles, L3-L5, with palpable knot consistent with muscle spasm. (+) midline tenderness, (-) straight leg raise testing -No trauma, or fever. No saddle anesthesia or bladder/bowel incontinence. No CVA tenderness. -Pt is neurologically intact on exam with no focal findings. -X-ray shows a straight spine consistent with spasm. -Toradol given with relief of symptoms -DC home. Ortho follow up given for if symptoms do not resolve. -I discussed the physical exam findings, ancillary test results and final diagnoses with the patient. I answered all of the patient's questions. The patient was satisfied with the care received and felt comfortable with the discharge plan and treatment plan. The Patient agrees to follow up with the primary care physician/specialist within 24-72 hours. Return precautions were given. Discharge - Discharge Information Problems reviewed: Yes Clinical Impression/Diagnosis: Low back pain Qualifiers: Chronicity: acute Back pain laterality: left Sciatica presence: without sciatica Qualified Code(s): M54.5 - Low back pain Condition: Stable Disposition: HOME - Admission No - Follow up/Referral Referrals: Soniya Cruz MD [Primary Care Provider] - - Patient Discharge Instructions Patient Printed Discharge Instructions: DI for Low Back Pain Additional Instructions: You have low back pain due to a muscle spasm. Please take ibuprofen 600 mg 4 times a day not to exceed 3000 mg a day. You were also prescribed Flexeril. Take the medication before you go to bed. Do not drive after taking this medication as it may make you sleepy. You may use warm compresses on your back to help with her symptoms. Please follow-up with your primary care doctor. If your symptoms do not resolve in 3-5 days, follow-up with orthopedics. A referral has been provided for you. Return to the emergency department if you have worsening back pain, bladder or bowel incontinence, numbness and tingling in her legs, changes in the way you walk, or any new or worsening symptoms. - Post Discharge Activity Work/Back to School Note: Back to Work
[2019-04-07] MEDS ORDERED: KETOROLAC TROMETHAMINE 60 MG/2 ML VIAL ONE (08:57)
[2019-04-07] MEDS ORDERED: LIDOCAINE 5% TOPICAL PATCH ONE (08:57)
[2019-04-07] MEDS ORDERED: CYCLOBENZAPRINE HCL 10 MG TABLET (FP) ONE (08:57)
== END 2019-04-07 10:04 | disposition home or self-care (01) ==
LOC: JERFT 08:14
PROC: 3E0233Z Introduction of Anti-inflammatory into Muscle, Percutaneous Approach (ICD-10-PCS; principal; 2019-04-07)
DX: S39.82XA Other specified injuries of lower back, initial encounter (principal); M62.830 Muscle spasm of back; X50.9XXA Other and unspecified overexertion or strenuous movements or postures, initial encounter; Y93.89 Activity, other specified; Y92.233 Cafeteria of hospital as the place of occurrence of the external cause; Y99.0 Civilian activity done for income or pay
CPT/HCPCS: 72100-TC-FY; 99282-25

== ENCOUNTER 2021-12-19 08:11 | Emergency (ER) | payer OTHER ==
[2021-12-19 08:18] VITALS: TEMP 97.5; BMI 21.9
[2021-12-19 09:53] LABS: EPI CELLS >36 /uL (0-25.1); HYALINE CASTS 4 /uL (0-3.1); PH,URINE 5.5 (5.0-8.0); URINE APPEARANCE CLOUDY; URINE BACTERIA 212 /uL (0-1359); URINE BILIRUBIN NEGATIVE (NEGATIVE); URINE COLOR YELLOW; URINE GLUCOSE (UA) NEGATIVE (NEGATIVE); URINE KETONE NEGATIVE (NEGATIVE); URINE LEUK ESTERASE 1+ (NEGATIVE); URINE NITRITE NEGATIVE (NEGATIVE); URINE PROTEIN NEGATIVE (NEGATIVE); URINE RBC 17 /uL (0-23.9); URINE UROBILINOGEN 0.2 mg/dL (0.2-1.0); URINE WBC 86 /uL (0-25.8)
[2021-12-19 09:55] LABS: BASO % 0.8 % (0-2.0); EOS % 0.4 % (0-4.5); HEMATOCRIT 38.6 % (32.4-45.2); HEMOGLOBIN 12.9 GM/dL (10.7-15.3); LYMPH % 23.3 % (8-40); MCH 31.5 pg (25.7-33.7); MCHC 33.4 g/dl (32.0-36.0); MEAN CELL VOLUME 94.2 fl (80-96); MEAN PLT VOLUME 9.1 fl (7.5-11.1); MONO % 9.7 % (3.8-10.2); NEUT % 65.8 % (42.8-82.8); PLATELET COUNT 214 10^3/uL (134-434); RDW 14.2 % (11.6-15.6); WHITE BLOOD COUNT 8.8 K/mm3 (4.0-10.0)
[2021-12-19 10:10] LABS: ALBUMIN 3.9 g/dl (3.4-5.0)
[2021-12-19 10:13] LABS: CREATININE 0.7 mg/dL (0.55-1.3)
[2021-12-19 10:15] LABS: BILIRUBIN,TOTAL 0.5 mg/dL (0.2-1); TOT PROT 6.7 g/dl (6.4-8.2)
[2021-12-19 13:28] VITALS: BP 153/93; PULSE 77; RESP 18
== END 2021-12-19 13:28 | disposition home or self-care (01) ==
LOC: JER 08:11
DX: R07.9 Chest pain, unspecified (principal)
CPT/HCPCS: 36415; 71046-TC-FY; 80053; 81003; 82962; 84439; 84443; 84484; 85025; 87086; 93005; 93010; 99284-25

== ENCOUNTER 2023-01-11 07:39 | Emergency (ER) | payer OTHER ==
[2023-01-11 07:48] VITALS: BP 147/97; PULSE 82; RESP 18; TEMP 99; BMI 20.5
[2023-01-11] MEDS ORDERED: LIDOCAINE 5% TOPICAL PATCH TP ONE (07:49)
[2023-01-11] MEDS ORDERED: KETOROLAC TROMETHAMINE 30 MG/1 ML VIAL IM ONE (07:49)
[2023-01-11] MEDS ORDERED: KETOROLAC TROMETHAMINE 30 MG/1 ML VIAL ONE (07:54)
[2023-01-11] MEDS ORDERED: LIDOCAINE 4% PATCH TP ONE (07:54)
[2023-01-11] MEDS ORDERED: LIDOCAINE PATCH REMOVAL MC ONE (22:00)
== END 2023-01-11 08:58 | disposition home or self-care (01) ==
LOC: JER 07:39
PROC: 3E0233Z Introduction of Anti-inflammatory into Muscle, Percutaneous Approach (ICD-10-PCS; principal; 2023-01-11)
DX: M54.50 Low back pain, unspecified (principal); M62.830 Muscle spasm of back; R05.9 Cough, unspecified; R20.2 Paresthesia of skin; J00 Acute nasopharyngitis [common cold]
CPT/HCPCS: 99284-25

== ENCOUNTER 2023-11-20 09:40 | Observation (INO) | payer OTHER ==
[2023-11-20 10:13] LABS: BASO % 2.1 % (0-2.0); EOS % 10.1 % (0-4.5); HEMATOCRIT 37.8 % (32.4-45.2); HEMOGLOBIN 12.8 GM/dL (10.7-15.3); LYMPH % 35.4 % (8-40); MCH 31.5 pg (25.7-33.7); MCHC 33.8 g/dl (32.0-36.0); MEAN CELL VOLUME 93.1 fl (80-96); MEAN PLT VOLUME 8.1 fl (7.5-11.1); MONO % 10.9 % (3.8-10.2); NEUT % 41.5 % (42.8-82.8); PLATELET COUNT 210 10^3/uL (134-434); RBC 4.06 M/mm3 (3.60-5.2); RDW 14.2 % (11.6-15.6); WHITE BLOOD COUNT 4.4 K/mm3 (4.0-10.0)
[2023-11-20] MEDS: CEPHALEXIN 250 MG/5 ML ORAL SUSPENSION PO ONE (10:15)
[2023-11-20 10:18] LABS: INR 0.9 (0.83-1.09); PROTHROMBIN TIME (PATIENT) 10.4 SEC (9.7-13.0)
[2023-11-20 10:21] LABS: ACTIVATED PTT 28.5 SECONDS (25.2-36.5)
[2023-11-20] MEDS ORDERED: ASPIRIN 81 MG CHEWABLE TABLETS ONE (10:23)
[2023-11-20 10:24] LABS: PH,URINE 6.5 (5.0-8.0); URINE APPEARANCE CLEAR; URINE BILIRUBIN NEGATIVE (NEGATIVE); URINE COLOR YELLOW; URINE GLUCOSE (UA) NEGATIVE (NEGATIVE); URINE KETONE NEGATIVE (NEGATIVE); URINE LEUK ESTERASE NEGATIVE (NEGATIVE); URINE NITRITE NEGATIVE (NEGATIVE); URINE PROTEIN NEGATIVE (NEGATIVE); URINE UROBILINOGEN 0.2 mg/dL (0.2-1.0)
[2023-11-20] MEDS: SODIUM CHLORIDE 1,000 ML IV SCH (10:27)
[2023-11-20] MEDS: ASPIRIN 81 MG CHEWABLE TABLETS PO ONE (10:27)
[2023-11-20 10:36] LABS: CALCIUM 8.8 mg/dL (8.5-10.1); POTASSIUM 3.8 mmol/L (3.5-5.1)
[2023-11-20 10:37] LABS: ALBUMIN 3.8 g/dl (3.4-5.0)
[2023-11-20 10:38] LABS: BLOOD UREA NITROGEN 8.2 mg/dL (7-18)
[2023-11-20 10:40] LABS: CREATININE 0.7 mg/dL (0.55-1.3)
[2023-11-20 10:42] LABS: TOT PROT 6.5 g/dl (6.4-8.2)
[2023-11-20 10:44] LABS: BILIRUBIN,TOTAL 0.5 mg/dL (0.2-1)
[2023-11-20] MEDS: NEBIVOLOL 5 MG TABLET (FP) PO SCH (18:56)
[2023-11-20] MEDS: ACETAMINOPHEN 325 MG TABLET (FP) PO PRN (19:03)
[2023-11-20] MEDS: ATORVASTATIN CA 10 MG TABLET (FP) PO SCH (21:48)
[2023-11-21 08:01] LABS: BASO % 2.3 % (0-2.0); EOS % 11.8 % (0-4.5); HEMATOCRIT 37.7 % (32.4-45.2); HEMOGLOBIN 12.8 GM/dL (10.7-15.3); LYMPH % 36.3 % (8-40); MCH 31.8 pg (25.7-33.7); MCHC 33.9 g/dl (32.0-36.0); MEAN CELL VOLUME 93.7 fl (80-96); MEAN PLT VOLUME 8.6 fl (7.5-11.1); MONO % 11.3 % (3.8-10.2); NEUT % 38.3 % (42.8-82.8); PLATELET COUNT 194 10^3/uL (134-434); RBC 4.02 M/mm3 (3.60-5.2); RDW 13.9 % (11.6-15.6); WHITE BLOOD COUNT 3.6 K/mm3 (4.0-10.0)
[2023-11-21 08:14] VITALS: BP 133/88; TEMP 97.5
[2023-11-21 08:16] LABS: POTASSIUM 3.8 mmol/L (3.5-5.1)
[2023-11-21 08:21] LABS: CALCIUM 8.5 mg/dL (8.5-10.1)
[2023-11-21 08:22] LABS: ALBUMIN 3.6 g/dl (3.4-5.0); BLOOD UREA NITROGEN 5.8 mg/dL (7-18); MAGNESIUM 2.1 mg/dL (1.8-2.4)
[2023-11-21 08:25] LABS: CREATININE 0.5 mg/dL (0.55-1.3)
[2023-11-21 08:26] LABS: BILIRUBIN,TOTAL 0.7 mg/dL (0.2-1)
[2023-11-21] MEDS: ASPIRIN 81 MG CHEWABLE TABLETS PO SCH (09:44)
[2023-11-21 12:29] VITALS: PULSE 60; RESP 17
[2023-11-22] MEDS ORDERED: LEVOTHYROXINE NA 25 MCG TABLET (FP) PO SCH (07:00)
== END 2023-11-21 13:58 | disposition home or self-care (01) ==
LOC: JER 09:40 → JERBED 14:38 → J4W 18:21
PROVIDERS: ADMIT Family Medicine; ATTEND Family Medicine
PROC: 3E0337Z Introduction of Electrolytic and Water Balance Substance into Peripheral Vein, Percutaneous Approach (ICD-10-PCS; principal; 2023-11-20)
DX: G45.9 Transient cerebral ischemic attack, unspecified (principal); E78.5 Hyperlipidemia, unspecified; D47.2 Monoclonal gammopathy; I10 Essential (primary) hypertension
CPT/HCPCS: 36415; 70450-TC; 70496-TC; 70498-TC; 70551-TC; 80053; 80061; 81003; 82550; 82962; 83036; 83735; 84443; 84484; 85025; 85610; 85730; 93005; 93010; 93306-TC; 93880-TC; 99285-25; G0378

== ENCOUNTER 2024-01-14 08:42 | Emergency (ER) | payer OTHER ==
[2024-01-14 08:48] VITALS: BP 131/87; PULSE 59; RESP 16; TEMP 97.6; BMI 21.7
== END 2024-01-14 09:30 | disposition home or self-care (01) ==
LOC: JERFT 08:42
DX: M79.89 Other specified soft tissue disorders (principal); T63.463A Toxic effect of venom of wasps, assault, initial encounter
CPT/HCPCS: 99283-25